=== PATIENT | female | born 1985 | race Two or more races ===

== ENCOUNTER 2023-06-05 18:51 | Emergency (ER) | payer SELFPAY ==
[~2023-06-05] VITALS: Ht 172.7 cm; Wt 140.0 kg
[2023-06-05 19:20] VITALS: BP 146/93; PULSE 76; RESP 18; O2SAT 93
[2023-06-06] MEDS ORDERED: ZOFR4T PO (02:44)
[2023-06-06] MEDS ORDERED: IBUP-1456 PO (02:44)
[2023-06-06 03:03] LABS: Urine Bacteria MANY /hpf (None Seen); Urine Blood 3+ /uL (Negative); Urine Clarity HAZY (Clear); Urine Color Yellow (Yellow); Urine Mucus FEW (None Seen); Urine Protein, UAD 1+ (Negative); Urine Urobilinogen Normal (Negative); Urine WBC 22 /hpf (0 - 5); Urine pH 6.5 (5.0-8.0)
== END 2023-06-05 22:16 | disposition left against medical advice (07) ==
LOC: ER 18:51
DX: G43.909 Migraine, unspecified, not intractable, without status migrainosus (principal); Z53.21 Procedure and treatment not carried out due to patient leaving prior to being seen by health care provider
CPT/HCPCS: 81001; 81025

== ENCOUNTER 2023-06-06 01:15 | Emergency (ER) | payer MEDICAID, OTHER ==
[~2023-06-06] VITALS: Ht 172.7 cm; Wt 138.0 kg
[2023-06-06 02:13] VITALS: BP 132/88; PULSE 77; RESP 16; O2SAT 96
[2023-06-06] MEDS ORDERED: ZOFR4T PO (02:44)
[2023-06-06] MEDS ORDERED: IBUP-1456 PO (02:44)
== END 2023-06-06 03:09 | disposition home or self-care (01) ==
LOC: ER 01:15
DX: G44.209 Tension-type headache, unspecified, not intractable (principal); G43.909 Migraine, unspecified, not intractable, without status migrainosus
CPT/HCPCS: 70450

== ENCOUNTER 2023-10-11 01:51 | Emergency (ER) | payer MEDICAID, OTHER ==
[~2023-10-11] VITALS: Ht 172.7 cm; Wt 136.0 kg
[2023-10-11 01:51] VITALS: BP 133/73; PULSE 82; RESP 20; O2SAT 97
[~2023-10-11 01:51] MED LIST: IBUP-1456 PO; ZOFR4T PO
[2023-10-11] MEDS ORDERED: ACE3T PO (05:20)
[2023-10-11] MEDS: KETOROLAC TROMETH 60MG/2ML VIAL IM ONE (05:27)
== END 2023-10-11 05:27 | disposition home or self-care (01) ==
LOC: ER 01:51
DX: G44.209 Tension-type headache, unspecified, not intractable (principal); Z90.49 Acquired absence of other specified parts of digestive tract
CPT/HCPCS: 96372; 99283; J1885